=== PATIENT | female | born 1990 | race Caucasian/White ===

== ENCOUNTER 2021-04-04 15:13 | Emergency (ER) | payer OTHER ==
[2021-04-04] MEDS ORDERED: diphenhydrAMINE 50 MG/ML 1 ML VIAL IVP STA (16:35)
[2021-04-04] MEDS ORDERED: PYRIDOXINE 100 MG/ML 1 ML VIAL IVP STA (16:35)
[2021-04-04] MEDS ORDERED: DEXTROSE 5%-0.9% NACL 1,000 ML IV SCH (16:45)
[2021-04-04 17:11] LABS: Basophils % (A) 0 %; Eosinophils # (A) 0.1 k/uL (0-0.7); Eosinophils % (A) 1 %; HCT 40.4 % (34.0-46.0); HGB 14.2 gm/dL (11.4-16.0); Lymphocytes # (A) 1.5 k/uL (1.0-4.8); Lymphocytes % (A) 15 %; MCH 33.2 pg (25.0-35.0); MCHC 35.2 g/dL (31.0-37.0); MCV 94.4 fL (80.0-100.0); Mean Platelet Volume 6.8; Monocytes # (A) 0.4 k/uL (0-1.0); Monocytes % (A) 4 %; Neutrophils # (A) 7.6 k/uL (1.3-7.7); Neutrophils % (A) 79 %; Platelet Count 268 k/uL (150-450); RBC 4.28 m/uL (3.80-5.40); RDW 12.4 % (11.5-15.5); WBC 9.7 k/uL (3.8-10.6)
[2021-04-04 17:12] LABS: Appearance,Urine Cloudy (Clear); Bacteria,Urine Moderate /hpf; Bilirubin,Urine Negative (Negative); Blood,Urine Negative (Negative); Calcium Oxalate Crystals,Urine Occasional /hpf; Color,Urine Yellow; Glucose,Urine (UA) Negative (Negative); Ketones,Urine 1+ (Negative); Leukocyte Esterase,Urine Large (Negative); Mucus,Urine Many /hpf; Nitrite,Urine Negative (Negative); Protein,Urine 1+ (Negative); RBC,Urine 4 /hpf (0-5); Specific Gravity,Urine 1.025 (1.001-1.035); Squamous Epithelial Cell,Urine 14 /hpf (0-4); Urobilinogen,Urine <2.0 mg/dL (<2.0); WBC,Urine 13 /hpf (0-5)
[2021-04-04 17:21] LABS: ALT 20 U/L (4-34); AST 25 U/L (14-36); African American GFR (CKD) >90 (>60 ml/min/1.73 sqM); Albumin 4.4 g/dL (3.5-5.0); Alkaline Phosphatase 49 U/L (38-126); Anion Gap 8 mmol/L; Blood Urea Nitrogen 8 mg/dL (7-17); Calcium 9.6 mg/dL (8.4-10.2); Carbon Dioxide 25 mmol/L (22-30); Chloride 102 mmol/L (98-107); Glucose 78 mg/dL (74-99); Non-African American GFR(CKD) >90 (>60 ml/min/1.73 sqM); Potassium 3.9 mmol/L (3.5-5.1); Sodium 135 mmol/L (137-145); Total Bilirubin 0.3 mg/dL (0.2-1.3); Total Protein 7.4 g/dL (6.3-8.2)
[2021-04-04] MEDS ORDERED: METOCLOPRAMIDE 5 MG/ML 2 ML VIAL IVP STA ×2 (17:42→17:43)
[2021-04-04 18:27] VITALS: BP 104/65; PULSE 86; RESP 18; TEMP 98.7
[2021-04-04] MEDS ORDERED: NITROFURANTOIN MONOHYD/M-CRYST 100 MG CAP PO STA (18:43)
--- NOTE | 2021-04-04 18:45 | ED ---
General Adult HPI - General Chief complaint: Nausea/Vomiting/Diarrhea Stated complaint: 9wks,Vomiting Time Seen by Provider: 04/04/21 16:03 Source: patient Mode of arrival: ambulatory Limitations: no limitations - History of Present Illness Initial comments: Patient is 30-year-old female who presents emergency department complaining of persistent nausea and vomiting in . She is approximately 9 weeks . She has sought care previously. She states she has been experiencing persistent nausea and vomiting for the last 1-2 weeks. He has gotten worse and she is not tolerating any by mouth intake at this time. She scans her emesis is nonbilious and bloody. She denies any diarrhea, urinary complaints. She denies any chest pain, shortness of breath. She denies any headaches, weakness, numbness. She is taking vitamins at home when she can. She was attempting to follow-up with her CLINICAL DATA RESEARCH however she has been un able to see her. Therefore the patient came to the emergency department to be evaluated due to her persistent nausea and vomiting as well as concern for dehydration. She denies any fevers, chills, sick contacts. She does have a history of prior pregnancies with similar complaints with persistent nausea and vomiting. - Related Data Previous Rx's Medication Instructions Recorded Metoclopramide HCl [Reglan] 5 mg PO Q8HR PRN #9 tablet 04/04/21 Nitrofurantoin Monohyd/M-Cryst 100 mg PO Q12HR 3 Days #5 cap 04/04/21 [Macrobid] Allergies Allergy/AdvReac Type Severity Reaction Status Date / Time amoxicillin Allergy Rash/Hives Verified 04/04/21 15:30 Review of Systems ROS Statement: Those systems with pertinent positive or pertinent negative responses have been documented in the HPI. Review of Systems: CONST: Denies fever EYES: Denies blurry vision ENT: Denies nasal congestion C/V: Denies Chest pain RESP: Denies shortness of breath GI:Endorses nausea and vomiting : Denies dysuria SKIN: Denies rash. MSK: Denies joint pain. NEURO: Denies headache ROS Other: All systems not noted in ROS Statement are negative. Past Medical History Past Medical History: No Reported History History of Any Multi-Drug Resistant Organisms: None Reported Past Surgical History: No Surgical Hx Reported Past Psychological History: No Psychological Hx Reported Smoking Status: Never smoker Past Alcohol Use History: None Reported Past Drug Use History: None Reported General Exam - General Exam Comments Initial Comments: Constitutional: Blood pressure was 101/52, pulse was 72, respirations were 16, pulse oximetry was 99% on room air, temperature was 97.9. General: Appears in no acute distress. HEAD: Normal with no signs of head trauma. EYES: PERRLA, EOMI, conjunctiva normal, no discharge. ENT: Hearing grossly intact. Dry mucous membranes. RESPIRATORY: Clear breath sounds bilaterally. No wheezes, rales, or rhonchi. C/V: Regular rate and rhythm. S1 and S2 auscultated, no edema, peripheral pulses 2+ and intact throughout ABD: Abd is soft, nontender, nondistended. There is no guarding. There are no peritoneal signs. EXT: Normal range of motion, no obvious deformity SKIN: No rashes or lesions observed on exposed skin. NEURO: Alert and oriented 4. Limitations: no limitations Course Vital Signs 04/04/21 04/04/21 15:32 18:26 Temperature 97.9 F 98.7 F Pulse Rate 72 86 Respiratory 16 18 Rate Blood Pressure 101/52 104/65 O2 Sat by Pulse 99 98 Oximetry Medical Decision Making - Medical Decision Making Based on the patient's presentation and physical exam, I do believe she is experiencing nausea and vomiting in the setting of 9 weeks . I'm concerned for possible electrolyte abnormalities as well as UTI she has having some abdominal cramping. Therefore we will obtain basic laboratory studies as well as a urinalysis. We will obtain a urine test prior records. I do not believe that she requires labs as she is following up with a known CLINICAL DATA RESEARCH. Patient was in agreement with this plan. Patient will initially be treated with IV pyridoxine and Benadryl as well as 1 L D5 normal saline bolus. Patient was in agreement with this plan. On reevaluation, patient is complaining of continued nausea and therefore will be administered Reglan. We will attempt a by mouth challenge afterwards. Patient's temperature studies are remarkable for a mild hyponatremia of 135. Patient's urinalysis is concerning for possibly symptomatically hematuria, however may be a contaminated catch. However as she is somewhat symptomatic with the abdominal cramping as well as nausea and vomiting, I do believe she meets criteria for antibody treatment for his symptomatically bacteria. On repeat evaluation, patient is tolerating by mouth intake. She would like to go home. I did discuss the laboratory studies with her and would like to treat her with by mouth antibiotics as well as give her a prescription for Reglan for home. She will receive the first dose of Macrobid here in the emergency department, as well as a prescription for a total of 3 days of Macrobid BID. Lorne casey was in agreement with this plan. Instructed to follow up with her CLINICAL DATA RESEARCH within the next 2-3 days. Patient was in an argument this plan. Patient was discharged home in improved condition. Strict return precautions were provided to the patient. - Lab Data Result diagrams: 04/04/21 16:55 04/04/21 16:55 Lab Results 04/04/21 04/04/21 04/04/21 Range/Units 16:55 16:55 16:55 WBC 9.7 (3.8-10.6) k/uL RBC 4.28 (3.80-5.40) m/uL Hgb 14.2 (11.4-16.0) gm/dL Hct 40.4 (34.0-46.0) % MCV 94.4 (80.0-100.0) fL MCH 33.2 (25.0-35.0) pg MCHC 35.2 (31.0-37.0) g/dL RDW 12.4 (11.5-15.5) % Plt Count 268 (150-450) k/uL MPV 6.8 Neutrophils % 79 % Lymphocytes % 15 % Monocytes % 4 % Eosinophils % 1 % Basophils % 0 % Neutrophils # 7.6 (1.3-7.7) k/uL Lymphocytes # 1.5 (1.0-4.8) k/uL Monocytes # 0.4 (0-1.0) k/uL Eosinophils # 0.1 (0-0.7) k/uL Basophils # 0.0 (0-0.2) k/uL Sodium 135 L (137-145) mmol/L Potassium 3.9 (3.5-5.1) mmol/L Chloride 102 (98-107) mmol/L Carbon Dioxide 25 (22-30) mmol/L Anion Gap 8 mmol/L BUN 8 (7-17) mg/dL Creatinine 0.51 L (0.52-1.04) mg/dL Est GFR (CKD-EPI)AfAm >90 (>60 ml/min/1.73 sqM) Est GFR (CKD-EPI)NonAf >90 (>60 ml/min/1.73 sqM) Glucose 78 (74-99) mg/dL Calcium 9.6 (8.4-10.2) mg/dL Total Bilirubin 0.3 (0.2-1.3) mg/dL AST 25 (14-36) U/L ALT 20 (4-34) U/L Alkaline Phosphatase 49 (38-126) U/L Total Protein 7.4 (6.3-8.2) g/dL Albumin 4.4 (3.5-5.0) g/dL Urine Color Yellow Urine Appearance Cloudy H (Clear) Urine pH 7.0 (5.0-8.0) Ur Specific [place] 1.025 (1.001-1.035) Urine Protein 1+ H (Negative) Urine Glucose (UA) Negative (Negative) Urine Ketones 1+ H (Negative) Urine Blood Negative (Negative) Urine Nitrite Negative (Negative) Urine Bilirubin Negative (Negative) Urine Urobilinogen <2.0 (<2.0) mg/dL Ur Leukocyte Esterase Large H (Negative) Urine RBC 4 (0-5) /hpf Urine WBC 13 H (0-5) /hpf Ur Squamous Epith Cells 14 H (0-4) /hpf Calcium Oxalate Crystal Occasional H (None) /hpf Urine Bacteria Moderate H (None) /hpf Urine Mucus Many H (None) /hpf Urine HCG, Qual (Not Detectd) 04/04/21 Range/Units 16:55 WBC (3.8-10.6) k/uL RBC (3.80-5.40) m/uL Hgb (11.4-16.0) gm/dL Hct (34.0-46.0) % MCV (80.0-100.0) fL MCH (25.0-35.0) pg MCHC (31.0-37.0) g/dL RDW (11.5-15.5) % Plt Count (150-450) k/uL MPV Neutrophils % % Lymphocytes % % Monocytes % % Eosinophils % % Basophils % % Neutrophils # (1.3-7.7) k/uL Lymphocytes # (1.0-4.8) k/uL Monocytes # (0-1.0) k/uL Eosinophils # (0-0.7) k/uL Basophils # (0-0.2) k/uL Sodium (137-145) mmol/L Potassium (3.5-5.1) mmol/L Chloride (98-107) mmol/L Carbon Dioxide (22-30) mmol/L Anion Gap mmol/L BUN (7-17) mg/dL Creatinine (0.52-1.04) mg/dL Est GFR (CKD-EPI)AfAm (>60 ml/min/1.73 sqM) Est GFR (CKD-EPI)NonAf (>60 ml/min/1.73 sqM) Glucose (74-99) mg/dL Calcium (8.4-10.2) mg/dL Total Bilirubin (0.2-1.3) mg/dL AST (14-36) U/L ALT (4-34) U/L Alkaline Phosphatase (38-126) U/L Total Protein (6.3-8.2) g/dL Albumin (3.5-5.0) g/dL Urine Color Urine Appearance (Clear) Urine pH (5.0-8.0) Ur Specific [place] (1.001-1.035) Urine Protein (Negative) Urine Glucose (UA) (Negative) Urine Ketones (Negative) Urine Blood (Negative) Urine Nitrite (Negative) Urine Bilirubin (Negative) Urine Urobilinogen (<2.0) mg/dL Ur Leukocyte Esterase (Negative) Urine RBC (0-5) /hpf Urine WBC (0-5) /hpf Ur Squamous Epith Cells (0-4) /hpf Calcium Oxalate Crystal (None) /hpf Urine Bacteria (None) /hpf Urine Mucus (None) /hpf Urine HCG, Qual Detected (Not Detectd) Disposition Clinical Impression: Nausea and vomiting during , Asymptomatic bacteriuria during Disposition: HOME SELF-CARE Condition: Good Instructions (If sedation given, give patient instructions): Acute Nausea and Vomiting (ED) Prescriptions: Nitrofurantoin Monohyd/M-Cryst [Macrobid] 100 mg PO Q12HR 3 Days #5 cap Metoclopramide HCl [Reglan] 5 mg PO Q8HR PRN #9 tablet PRN Reason: Nausea Is patient prescribed a controlled substance at d/c from ED?: No Referrals: Joe Valdez DO [Primary Care Provider] - 1-2 days
== END 2021-04-04 19:14 | disposition home or self-care (01) ==
LOC: EC 15:13
DX: O21.9 Vomiting of pregnancy, unspecified (principal); O26.891 Other specified pregnancy related conditions, first trimester; R82.71 Bacteriuria; Z3A.09 9 weeks gestation of pregnancy; Z88.1 Allergy status to other antibiotic agents
CPT/HCPCS: 99284 ×2; 96374 ×2; 96375 ×3; 96361; 36415; 80053; 85025; 81001; 81025; J1200; J3415; J2765